=== PATIENT | male | born 1990 | race Caucasian/White ===

== ENCOUNTER → 2018-05-24 | Outpatient (CLI) | payer BC ==
--- NOTE | 2018-05-24 22:51 | MR ---
MR brain without contrast HISTORY: Memory loss, amnesia Multiplanar multisequence imaging through the brain No comparisons There is a mass present within the third ventricle measuring approximately 4.8 cm which shows near ce rebral spinal fluid signal on T1-weighted images, increased signal on T2 and inversion recovery seque nces is some mixed signal on inversion recovery more posteriorly to the left midline and anteriorly. There is mass effect, third ventricle is enlarged and the left lateral wall of the third ventricle is displaced laterally. There is hydrocephalus periventricular increased signal suggestive of transepen dymal flow of cerebrospinal fluid. No evident hemorrhage. The orbits show a normal appearance. Corpus callosum is somewhat thinned likely due to the hydrocepha aaron. The cerebellopontine angles and pituitary are within normal limits. Cervical medullary junction is normal. The orbits show symmetric appearance. The nasal sinuses are well aerated. There are normal vascular f low voids. 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 Differential di agnostic considerations include entities such as epidermoid cyst, recommend neurosurgical consult, co ntrast-enhanced exam likely would be of benefit. A [place] critical message alert has been initiated for Deejay Cisneros MD via the [employer] on 05/24/2018 10:48 PM. This message alert has been sent to Deejay Cisneros MD via the preferences provided by the clinician for the receipt of Radiology Critical Findings. Message ID [id number].
== END | disposition home or self-care (01) ==
LOC: RADMRIMAIN 18:54
PROVIDERS: ATTEND Internal Medicine
DX: G91.9 Hydrocephalus, unspecified (principal)
CPT/HCPCS: 70551